=== PATIENT | female | born 1990 | race Caucasian/White ===

== ENCOUNTER 2016-06-13 17:07 | Day surgery (SDC) | payer BC ==
[~2016-06-13] VITALS: Ht 170.2 cm; Wt 56.7 kg
[~2016-06-13 17:07] MED LIST: ACHYD1T PO; DCS100C PO; DOCU100C37 PO; IBUP800T26 PO; METR500T PO; OXYC-465 PO; PREN1TAB39 PO; toradol PO
--- OUTSIDE RECORDS SUMMARY | 2016-06-13 17:12 | XMS REPORT | Continuity of Care Document ---
Author Author [facility] Organization [facility] Address Unknown Phone Unavailable Care Team Providers Care Hat Sprayer Name Role Phone CLAUDIO MCCLOUD MD PCP Insurance Providers Payer Name Policy Number Subscriber Name Relationship [facility] [id number] Billy Packer 18 Self / Same As Patient Advance Directives Directive Response Recorded Date/Time Advance Directives No 01/17/15 5:36pm Health Care Power of Security Intelligence Analyst No 01/17/15 5:36pm Organ Donor Yes 01/17/15 5:36pm Resuscitation Status Full Code 01/17/15 5:36pm Problems No known problems or medical conditions. Medications Medication Dose Route Sig Days/Qty Instructions Order Date Discontinued Date Status Vits W-Ca,Fe,Fa(<1MG) 1 Each PO DAILY 08/01/10 Active Metronidazole 1 Each PO TWICE A DAY 05/12/13 06/09/13 Discontinued Docusate Sodium 100 Mg PO TWICE A DAY PRN CONSTIPATION 60 Qty Use for constipation 06/12/13 Active Ibuprofen (Motrin) 800 Mg PO EVERY 6 HOURS PRN PAIN 60 Qty 06/12/13 Active Acetaminophen/Hydrocodone Bitart 1-2 Tab PO Q3H PRN PAIN 60 Qty Use for pain 06/12/13 Active Social History Social History Problem Response Recorded Date/Time Alcohol Use Denies Use 06/10/2013 6:05am Recreational Drug Use No 06/10/2013 6:05am Recent Foreign Travel No 06/10/2013 6:05am Hospitalization with Isolation Denies 06/12/2013 11:57pm Sexually Transmitted Disease No 06/10/2013 6:05am HIV/AIDS No 06/10/2013 6:05am Smoking Status Never a Smoker 01/17/2015 5:36pm Query Response Start Date Stop Date Smoking Status Never a Smoker Hospital Discharge Instructions No hospital discharge instructions. Plan of Care No plan of care. Functional Status No functional status results. Allergies, Adverse Reactions, Alerts Allergen Type Severity Reaction Status Last Updated No Known Drug Allergies Active 08/01/10 Immunizations Name Given Type Tetanus Booster (TDap) More than 5yrs Historical Vital Signs Acute Vital Signs Vital Response Date/Time Height (Feet) 5 feet Height (Inches) 6.00 inches Height (Calculated Centimeters) 167.119559 cm Weight (Pounds) 165 pounds Weight (Ounces) 14.0 oz Weight (Calculated Grams) 36659.635 gm Weight (Calculated Kilograms) 75.044489 kilograms Calculated BMI 26.63 Results No known relevant diagnostic tests, laboratory data and/or discharge summary. Procedures No known history of procedures. Encounters Encounter Location Date/Time Departed Clinic Via [facility] 01/17/15 5:11pm
[2016-06-13] MEDS ORDERED: D5 LR IV SOLUTION 1,000 ML IV SCH ×2 (17:13→17:16)
--- NOTE | 2016-06-13 17:13 | Progress Note-Pre Operative ---
Pre-Operative Progress Note H&P Reviewed The H&P was reviewed, patient examined and no changes noted. Date H&P Reviewed: Jun 13, 2016 Time H&P Reviewed: 17:13 Pre-Operative Diagnosis: incomplete spontaneous /intrauterine infection CLAUDIO MCCLOUD MD Jun 13, 2016 5:13 pm
[2016-06-13] MEDS ORDERED: KETOROLAC 30 MG/ML VIAL IVP ONE (17:15)
[2016-06-13] MEDS: LACTATED RINGERS 1,000 ML IV SCH ×2 (17:15→18:35)
[2016-06-13] MEDS ORDERED: ONDANSETRON 4 MG/2 ML (SDV) Z0FRAN IVP PRN (17:15)
[2016-06-13] MEDS ORDERED: PROMETHAZINE INJ 25 MG/ML (PHENERGAN) AMP IM ONE (17:15)
[2016-06-13] MEDS ORDERED: oxyCODONE/APAP 10/325MG (PERCOCET 10) TABLET PO PRN (17:15)
[2016-06-13] MEDS ORDERED: MEPERIDINE (DEMEROL) INJ 100 MG/ML IM ONE (17:15)
[2016-06-13] MEDS ORDERED: OXYC-465 PO (17:19)
[2016-06-13] MEDS ORDERED: morphine INJ 10 MG/ML 1ML (SYR OR VIAL) ONE (17:22)
[2016-06-13] MEDS ORDERED: KETOROLAC 30 MG/ML VIAL ONE (17:22)
[2016-06-13] MEDS ORDERED: MEPERIDINE (DEMEROL) INJ 50 MG/ML ONE (17:22)
--- NOTE | 2016-06-13 17:22 | Discharge Instructions ---
Discharge Instructions Discharge Medications New, Converted or Re-Newed RX: RX on Chart Patient Instructions Patient Instructions: as instructed Return to The Hospital For: as directed Activity & Diet Discharge Diet: No Restrictions Activity as Tolerated: No Orders-Post D/C & Referrals Follow Up Appt: Call to make follow up appt. for patient in 2 weeks. Activity: Rest for 24 hours, than as tolerated. Diet: As tolerated-Clear Liquids only if nauseated. Tomorrow, may shower or tub bathe as desired. No driving for 24 hours, no alcoholic beverages for 24 hours, and nothing per vagina (no tampons, douching, or intercourse) for 2 weeks. Patient to return to the clinic as soon as possible for: Temperature greater than 101F, Severe Pain, Foul discharge from incision or vagina, Excessive Bleeding (more than a period). CLAUDIO MCCLOUD MD Jun 13, 2016 5:22 pm
[2016-06-13] MEDS ORDERED: ceFAZolin 1,000 MG (ANCEF) VIAL ONE (17:23)
[2016-06-13] MEDS ORDERED: NORMAL SALINE (BAXTER MINI) 50 ML IV ONE (17:24)
[2016-06-13] MEDS ORDERED: METOCLOPRAMIDE INJ 10 MG/2 ML (REGLAN) ONE ×2 (17:26)
[2016-06-13] MEDS ORDERED: FAMOTIDINE 20MG/2ML IV (PEPCID) ONE (17:26)
[2016-06-13] MEDS ORDERED: MIDAZOLAM 10 MG/2 ML (VERSED) VIAL ONE (17:32)
[2016-06-13] MEDS ORDERED: fentaNYL INJECTION 100 MCG/2 ML AMP ONE (17:32)
[2016-06-13 17:33] LABS: BASOPHILS % (AUTO) 0 % (0-10); EOSINOPHILS # (AUTO) 0.1 10^3/uL (0.0-0.3); EOSINOPHILS % (AUTO) 1 % (0-10); LYMPHOCYTES # (AUTO) 2.3 X 10^3 (1.0-4.0); LYMPHOCYTES % (AUTO) 22 % (12-44); MEAN CORPUSCULAR HEMOGLOBIN 30 PG (25-34); MEAN CORPUSCULAR HGB CONC 34 G/DL (32-36); MEAN CORPUSCULAR VOLUME 87 FL (80-99); MONOCYTES # (AUTO) 0.6 X 10^3 (0.0-1.0); MONOCYTES % (AUTO) 6 % (0-12); NEUTROPHILS # (AUTO) 7.2 X 10^3 (1.8-7.8); NEUTROPHILS % (AUTO) 70 % (42-75); PLATELET COUNT 329 10^3/uL (130-400); RED CELL DISTRIBUTION WIDTH 12.8 % (10.0-14.5); WHITE BLOOD COUNT 10.2 10^3/uL (4.3-11.0)
[2016-06-13] MEDS ORDERED: FAMOTIDINE 20MG/2ML IV (PEPCID) IVP ONE (18:00)
[2016-06-13] MEDS ORDERED: METOCLOPRAMIDE INJ 10 MG/2 ML (REGLAN) IVP ONE (18:00)
[2016-06-13] MEDS ORDERED: PROPOFOL INJECTION 50 ML IV ONE (18:15)
[2016-06-13] MEDS ORDERED: diphenhydrAMINE 50 MG/ML INJ (BENADRYL) IV PRN (18:30)
[2016-06-13] MEDS ORDERED: NALOXONE 0.4 MG/ML 1 ML (NARCAN) VIAL IV PRN (18:30)
[2016-06-13] MEDS ORDERED: ONDANSETRON 4 MG/2 ML (SDV) Z0FRAN IV PRN (18:30)
[2016-06-13 19:30] VITALS: BP 97/57
--- OUTSIDE RECORDS SUMMARY | 2016-06-14 14:09 | XMS REPORT | Continuity of Care Document ---
Author Author [facility] Organization [facility] Address Unknown Phone Unavailable Care Team Providers Care Rf Microwave Engineer Name Role Phone CLAUDIO MCCLOUD MD PCP Insurance Providers Payer Name Policy Number Subscriber Name Relationship [facility] [id number] Billy Packer 18 Self / Same As Patient Advance Directives Directive Response Recorded Date/Time Advance Directives No 01/17/15 5:36pm Health Care Power of Armature Connector No 01/17/15 5:36pm Organ Donor Yes 01/17/15 [...] Height (Inches) 6.00 inches Height (Calculated Centimeters) 167.374506 cm Weight (Pounds) 165 pounds Weight (Ounces) 14.0 oz Weight (Calculated Grams) 31146.635 gm Weight (Calculated Kilograms) 75.596889 kilograms Calculated BMI 26.63 Results No known relevant diagnostic tests, laboratory data and/or discharge summary. Procedures No known history of procedures. Encounters Encounter Location Date/Time Departed Clinic Via [facility] 01/17/15 5:11pm
--- OUTSIDE RECORDS SUMMARY | 2016-06-14 14:09 | XMS REPORT | Continuity of Care Document ---
Author Author [facility] Organization [facility] Address Unknown Phone Unavailable Care Team Providers Care Record Press Tender Name Role Phone CLAUDIO MCCLOUD MD PCP Insurance Providers Payer Name Policy Number Subscriber Name Relationship [facility] [id number] Billy Packer 18 Self / Same As Patient Advance Directives Directive Response Recorded Date/Time Advance Directives No 01/17/15 5:36pm Health Care Power of Fire Equipment Inspector Helper No 01/17/15 5:36pm Organ Donor Yes 01/17/15 [...] Height (Inches) 6.00 inches Height (Calculated Centimeters) 167.680803 cm Weight (Pounds) 165 pounds Weight (Ounces) 14.0 oz Weight (Calculated Grams) 65769.635 gm Weight (Calculated Kilograms) 75.105942 kilograms Calculated BMI 26.63 Results No known relevant diagnostic tests, laboratory data and/or discharge summary. Procedures No known history of procedures. Encounters Encounter Location Date/Time Departed Clinic Via [facility] 01/17/15 5:11pm
[2016-06-14] MEDS ORDERED: ARTIFICAL TEARS 0.4 ML UNIT DOSE (REFRESH PLUS) ONE ×2 (21:45→23:34)
--- NOTE | 2016-06-17 06:20 | OPERATIVE REPORT ---
PROCEDURE PHYSICIAN: CLAUDIO MCCLOUD DATE OF PROCEDURE: 06/13/2016 DATE OF DICTATION: 06/13/2016 PREOPERATIVE DIAGNOSES: 1. Incomplete . 2. Intrauterine infection. POSTOPERATIVE DIAGNOSES: 1. Incomplete . 2. Intrauterine infection. OPERATIVE PROCEDURE: D&C, completion of incomplete . OPERATIVE DESCRIPTION: With the patient in supine position, under satisfactory spinal anesthesia, she was prepped and draped in usual fashion for vaginal surgery after being repositioned in the dorsal lithotomy position in the [facility]. The urinary bladder was emptied with a straight catheter. A weighted speculum was placed in the posterior fornix of the vagina. The cervix was exposed and grasped anteriorly with single-tooth tenaculum. The uterus was sounded to 10.5 cm of uterine sound. The cervix was then dilated to a number 9 Hegar dilator. A number 9 curved suction curette was introduced into the endometrial cavity was curettaged with removal of a large amount of necrotic and decidual/trophoblastic appearing tissue. There was some blood clot and debris. There was a foul odor and foul discharge. The endometrial cavity was then sharply curettaged in all 4 quadrants to a good uterine cry. The suction curette was reintroduced. All blood clot and debris evacuated from the uterus and from the vagina. The tenaculum was removed. There was no bleeding from the puncture sites. There was minimal bleeding from the cervical os. Sponge and needle counts were correct on completion of procedure. Estimated blood loss for procedure was minimal. The patient tolerated the procedure well, was uneventfully transferred from the operating room to the recovery room with her spinal still in effect. Plan was for discharge home once her spinal had resolved and she felt ready for discharge. Job ID: [id number] Dictated Date: 06/13/2016 18:18:23 Operations Supervisor 2Nd Shift Date: 06/17/2016 06:14:02 / jackson
== END 2016-06-13 21:30 | disposition home or self-care (01) ==
LOC: SDC 17:07 → UNDOADMOB 17:07 → WS 17:07 → SDC 21:30 → UNDODISOB 21:30 → EDSTATUS 06-14 14:05
PROVIDERS: ATTEND Obstetrics & Gynecology
DX: O03.0 Genital tract and pelvic infection following incomplete spontaneous abortion (principal)
CPT/HCPCS: 36415; 85025; 87081; 96374; 96375

== ENCOUNTER 2017-07-09 15:20 | Outpatient (CLI) | payer BC ==
[~2017-07-09] VITALS: Ht 170.2 cm; Wt 65.8 kg
[2017-07-09 15:33] VITALS: BP 126/74
--- NOTE | 2017-07-10 13:34 | Physician Query-Final Dx ---
JUWAN LOZANO 07/10/17 1334: Clinic Account Progress/Dx Physician Query: Please give diagnosis Date of Service Jul 09, 2017 at 15:20 CLAUDIO MCCLOUD MD 07/11/17 0747: Clinic Account Progress/Dx DIAGNOSIS: Diagnosis false labor JUWAN LOZANO Jul 10, 2017 13:34 CLAUDIO MCCLOUD MD Jul 11, 2017 07:47
== END 2017-07-09 16:05 | disposition home or self-care (01) ==
LOC: WSo 15:20 → LDRP 15:20 → WSo 16:05
PROVIDERS: ATTEND Obstetrics & Gynecology
DX: O47.02 False labor before 37 completed weeks of gestation, second trimester (principal); Z3A.20 20 weeks gestation of pregnancy
CPT/HCPCS: 99212

== ENCOUNTER 2017-11-06 19:38 | Outpatient (CLI) | payer BC ==
[~2017-11-06] VITALS: Ht 170.2 cm; Wt 76.9 kg
[2017-11-06 19:54] VITALS: BP 125/74
[2017-11-06] MEDS ORDERED: CETI10TA20 PO (21:15)
[2017-11-06] MEDS ORDERED: PREN1TAB25 PO (21:15)
[2017-11-09] MEDS ORDERED: IBUP-1780 PO (06:51)
[2017-11-09] MEDS ORDERED: DOCU-143 PO (06:51)
[2017-11-09] MEDS ORDERED: OXYC-197 PO (06:51)
--- NOTE | 2017-11-10 14:06 | Physician Query-Final Dx ---
JUWAN LOZANO 11/10/17 1406: Clinic Account Progress/Dx Physician Query: Please give diagnosis Date of Service November 06, 2017 at 19:38 CLAUDIO MCCLOUD MD 11/11/17 0726: Clinic Account Progress/Dx DIAGNOSIS: Diagnosis false labor JUWAN LOZANO Nov 10, 2017 14:06 CLAUDIO MCCLOUD MD Nov 11, 2017 07:26
== END 2017-11-06 21:33 | disposition home or self-care (01) ==
LOC: WSo 19:38 → LDRP 19:38 → WSo 21:33
PROVIDERS: ATTEND Obstetrics & Gynecology
DX: O47.1 False labor at or after 37 completed weeks of gestation (principal); Z3A.37 37 weeks gestation of pregnancy
CPT/HCPCS: 99213

== ENCOUNTER 2017-11-08 22:19 | Inpatient (IN) | payer BC ==
[~2017-11-08] VITALS: Ht 170.2 cm; Wt 77.1 kg
[~2017-11-08 22:19] MED LIST changes: +CETI10TA20 PO; +PREN1TAB25 PO
[2017-11-08 22:40] VITALS: BP 124/80
[2017-11-08] MEDS: D5 LR IV SOLUTION 1,000 ML IV SCH (23:00)
[2017-11-09] VITALS (28 sets, daily range): BP systolic 85–130; BP diastolic 54–85
[2017-11-09] MEDS ORDERED: OXYTOCIN/NORMAL SALINE 500 ML IV SCH ×3 (03:26→08:33)
[2017-11-09] MEDS ORDERED: D5 LR IV SOLUTION 1,000 ML IV SCH (03:26)
[2017-11-09] MEDS ORDERED: LIDOCAINE/EPI 2% 1:200,00 (XYLOCAINE) 10 ML VIAL ONE ×2 (03:33→07:09)
[2017-11-09 03:42] LABS: BASOPHILS % (AUTO) 0 % (0-10); EOSINOPHILS # (AUTO) 0.1 10^3/uL (0.0-0.3); EOSINOPHILS % (AUTO) 1 % (0-10); HEMATOCRIT 36 % (35-52); HEMOGLOBIN 12.2 G/DL (11.5-16.0); LYMPHOCYTES # (AUTO) 2.2 X 10^3 (1.0-4.0); LYMPHOCYTES % (AUTO) 21 % (12-44); MEAN CORPUSCULAR HEMOGLOBIN 30 PG (25-34); MEAN CORPUSCULAR HGB CONC 34 G/DL (32-36); MEAN CORPUSCULAR VOLUME 89 FL (80-99); MEAN PLATELET VOLUME 10.3 FL (7.4-10.4); MONOCYTES # (AUTO) 1.1 X 10^3 (0.0-1.0); MONOCYTES % (AUTO) 11 % (0-12); NEUTROPHILS # (AUTO) 7.1 X 10^3 (1.8-7.8); NEUTROPHILS % (AUTO) 68 % (42-75); PLATELET COUNT 334 10^3/uL (130-400); RED BLOOD COUNT 4.04 10^6/uL (4.35-5.85); RED CELL DISTRIBUTION WIDTH 13.5 % (10.0-14.5); WHITE BLOOD COUNT 10.4 10^3/uL (4.3-11.0)
[2017-11-09] MEDS: D5 LR IV SOLUTION 1,000 ML IV SCH (06:08)
--- NOTE | 2017-11-09 06:44 | History & Physical ---
History and Physical Date Seen by Provider: Nov 09, 2017 Time Seen by Provider: 06:42 This patient is a 26-year-old A2 white female who presented with somewhat irregular contractions but with advanced cervical dilation at 5-6 cm. She was unsure whether or not she was leaking fluid. She's had no problems with his to date. Her GBS culture after 35 weeks gestation was negative. She has a history of relatively rapid progress in labor. Allergies are none Medications are vitamins Medical social surgical obstetric and family histories are per the antepartum record HEENT exam is normal Neck is supple no lymphadenopathy no thyromegaly Abdomen is gravid soft nontender nondistended Extremities show no clubbing or cyanosis. There is no Homans sign. There is minimal pretibial pitting edema. Exam reveals a cervix that is 6 cm dilated 70 percent effaced and 0 to -1 station vertex presentation with intact membranes. Amniotomy is performed with release of clear fluid. Laboratory Tests 11/08/17 23:00 Assessment and plan term at one day shy of 38 weeks gestation in spontaneous labor. Anticipation is for vaginal delivery. Allergies and Home Medications Allergies Coded Allergies: No Known Drug Allergies (Unverified , 11/08/17) Home Medications Cetirizine HCl 10 Mg Tablet, 10 MG PO DAILY, (Reported) Vit#96/Ferrous Fum/FA 1 Each Tablet, 1 EACH PO DAILY, (Reported) Patient Home Medication List Home Medication List Reviewed: Yes Clinical Quality Measures DVT/VTE Risk/Contraindication: Risk Factor Score Per Nursin RFS Level Per Nursing on Admit: 1=Low/No VTE PPX CLAUDIO MCCLOUD MD Nov 09, 2017 6:44 am
[2017-11-09] MEDS ORDERED: DOCU-143 PO (06:51)
[2017-11-09] MEDS ORDERED: IBUP-1780 PO (06:51)
[2017-11-09] MEDS ORDERED: OXYC-197 PO (06:51)
--- NOTE | 2017-11-09 06:52 | Discharge Instructions ---
Discharge Instructions Discharge Medications New, Converted or Re-Newed RX: RX on Chart Patient Instructions Patient Instructions: as directed Return to The Hospital For: As directed Activity & Diet Discharge Diet: No Restrictions Activity as Tolerated: No Orders-Post D/C & Referrals Follow Up Appt: Call to make follow up appt. for patient in 4 weeks. Activity Per routine post vaginal delivery instructions. Diet as tolerated Patient may shower or tub bathe as desired. CLAUDIO MCCLOUD MD Nov 09, 2017 6:52 am
[2017-11-09] MEDS ORDERED: TETANUS,DIPTH,PERTUSS P/F (BOOSTRIX) 0.5 ML VIAL IM ONE (08:45)
[2017-11-09] MEDS ORDERED: BENZOCAINE/MENTHOL (DERMOPLAST) 56 ML CAN TP PRN (08:45)
[2017-11-09] MEDS ORDERED: oxyCODONE/APAP 5/325MG (PERCOCET 5) TABLET PO PRN (08:45)
[2017-11-09] MEDS: KETOROLAC 30 MG/ML VIAL IV SCH ×3 (09:22→20:49)
--- NOTE | 2017-11-09 19:54 | OPERATIVE REPORT ---
DATE OF SERVICE: 11/09/2017 DELIVERY NOTE The patient delivered by term spontaneous vaginal delivery a viable male with Apgars of 8 and 9 at 1 and 5 minutes respectively. time of 07:48, weight of 7 pounds 14 ounces and cord arterial blood pH of 7.26. The infant was delivered over a first-degree perineal laceration under no analgesia. There was a tight nuchal cord that was released. There was somewhat of a shoulder dystocia. After the head delivered, the posterior shoulder was out already on the perineum. This made the anterior shoulder a little bit difficult for the mom to push under, but with several pushes and with gentle traction, the delivery was completed. The had a spontaneous cry, moved all extremities, had a normal [place] reflex immediately, had good tone and reflexes and was quickly pink and had a lusty cry. The infant was bulb suctioned on delivery of the head and again on completion of delivery. The father cut the cord, the baby was passed to mom's abdomen. After cord bloods were obtained, the placenta delivered spontaneously Beatty. It was normal with a 3-vessel cord. The cervix, vagina, rectum and perineum were examined and found intact, except for an approximately 2 to 2.5 cm first-degree perineal laceration at the right posterolateral portion of the posterior fourchette. The edges of this laceration were trimmed and after infiltrating the area with 1% lidocaine with epinephrine and then the defect was closed with a single suture of 3-0 Vicryl in a running lock fashion to good reapproximation and good hemostasis. Sponge and needle counts were correct on completion of delivery and the repair. Estimated blood loss was around 250 mL. The mom remained in the LDR for recovery. The baby remained with the mom. Job ID: [id number] DocumentID: [id number] Dictated Date: 11/09/2017 08:12:01 Android Framework Developer Date: 11/09/2017 19:54:28 Dictated By: CLAUDIO MCCLOUD MD
[2017-11-09] MEDS: DOCUSATE SODIUM 100 MG (COLACE) CAP PO SCH ×2 (20:14→20:49)
[2017-11-09] MEDS: CATHETER FLUSH 10 ML SYR IV SCH (20:49)
[2017-11-10] VITALS: BP 109/70
[2017-11-10] MEDS: KETOROLAC 30 MG/ML VIAL IV SCH (01:56)
[2017-11-10] MEDS: CATHETER FLUSH 10 ML SYR IV SCH ×2 (01:56→02:38)
[2017-11-10 04:25] VITALS: BP 103/68
[2017-11-10] MEDS: DOCUSATE SODIUM 100 MG (COLACE) CAP PO SCH (09:12)
[2017-11-10] MEDS: IBUPROFEN 800 MG (MOTRIN) TAB PO SCH ×3 (09:13→20:50)
[2017-11-10 09:25] VITALS: BP 99/69
--- NOTE | 2017-11-10 12:59 | Progress Note-Standard ---
Standard Progress Note Progress Notes/Assess & Plan Date Seen by Provider: Nov 10, 2017 Time Seen by Provider: 07:45 Progress/Assessment & Plan This patient is without complaint. She is ambulating, voiding, tolerating by mouth well, has good pain control. Patient denies chest pain, denies shortness of breath, denies nausea vomiting, denies headache. Vital Signs Date Time Temp Pulse Resp B/P (MAP) Pulse Ox O2 Delivery O2 Flow Rate FiO2 11/10/17 09:25 97.1 104 18 99/69 (79) Room Air 11/10/17 04:25 98.1 88 18 103/68 (80) 98 Room Air 11/10/17 00:00 98.0 89 18 109/70 (83) 99 Room Air 11/09/17 20:49 99.0 84 18 101/60 (74) 99 Room Air 11/09/17 18:10 98.3 87 18 104/67 (79) 100 Room Air 11/09/17 13:30 98.5 70 18 85/54 (64) 100 Room Air I & O 11/10/17 07:00 Intake Total 1500 ml Balance 1500 ml Vital signs are stable. Patient afebrile. Fundus is firm below the umbilicus and nontender. Extremities show no clubbing cyanosis. There is no Homans sign. Assessment and plan day number 1 status post term spontaneous vaginal delivery doing well. Plan is for routine convalescence care today and discharge home tomorrow CLAUDIO MCCLOUD MD Nov 10, 2017 12:59 pm
[2017-11-10 13:00] VITALS: BP 130/80
[2017-11-10 20:50] VITALS: BP 115/75
[2017-11-11] MEDS: DOCUSATE SODIUM 100 MG (COLACE) CAP PO SCH ×2 (02:56→08:33)
[2017-11-11 02:57] VITALS: BP 102/65
[2017-11-11] MEDS: IBUPROFEN 800 MG (MOTRIN) TAB PO SCH ×3 (02:57→13:38)
--- NOTE | 2017-11-11 07:31 | Progress Note-Standard ---
Standard Progress Note Progress Notes/Assess & Plan Date Seen by Provider: Nov 11, 2017 Time Seen by Provider: 07:29 Progress/Assessment & Plan This patient is without complaint. She is ambulating, voiding, tolerating by mouth well, has good pain control. Patient denies chest pain, denies shortness of breath, denies nausea vomiting, denies headache. Vital Signs Date Time Temp Pulse Resp B/P (MAP) Pulse Ox O2 Delivery O2 Flow Rate FiO2 11/10/17 09:25 97.1 104 18 99/69 (79) Room Air 11/10/17 04:25 98.1 88 18 103/68 (80) 98 Room Air 11/10/17 00:00 98.0 89 18 109/70 (83) 99 Room Air 11/09/17 20:49 99.0 84 18 101/60 (74) 99 Room Air 11/09/17 18:10 98.3 87 18 104/67 (79) 100 Room Air 11/09/17 13:30 98.5 70 18 85/54 (64) 100 Room Air I & O 11/10/17 07:00 Intake Total 1500 ml Balance 1500 ml Vital signs are stable. Patient afebrile. Fundus is firm below the umbilicus and nontender. Extremities show no clubbing cyanosis. There is no Homans sign. Assessment and plan day number 1 status post term spontaneous vaginal delivery doing well. Plan is for routine convalescence care today and discharge home tomorrow November 11, 2017 This patient again is without complaint. She is ambulating, voiding, tolerating by mouth well, has good pain control. Patient denies chest pain, denies shortness of breath, denies nausea vomiting, denies headache. Vital Signs Date Time Temp Pulse Resp B/P (MAP) Pulse Ox O2 Delivery O2 Flow Rate FiO2 11/11/17 02:57 99.0 85 18 102/65 (77) 99 Room Air 11/10/17 20:50 98.0 87 18 115/75 (88) 100 Room Air 11/10/17 13:00 98.3 98 18 130/80 (97) Room Air 11/10/17 09:25 97.1 104 18 99/69 (79) Room Air Vital signs are stable. Patient afebrile. Fundus is firm below the umbilicus and nontender. Extremities show no clubbing cyanosis. There is no Homans sign. Assessment and plan day number 2 status post term spontaneous vaginal delivery doing well. Plan is for routine convalescence care today with discharge home Final Diagnosis CLAUDIO LYNN MD Nov 11, 2017 7:31 am
[2017-11-11 08:28] VITALS: BP 102/63
[2017-11-11 08:40] VITALS: BP 107/61
[2017-11-11] MEDS ORDERED: TETANUS,DIPTH,PERTUSS P/F (BOOSTRIX) 0.5 ML VIAL IM ONE (13:28)
== END 2017-11-11 13:40 | disposition home or self-care (01) | DRG 775 ==
LOC: WSo 22:19 → LDRP 22:20 → WSo 11-09 03:00 → LDRP 11-09 03:00
PROVIDERS: ADMIT Obstetrics & Gynecology; ATTEND Obstetrics & Gynecology
PROC: 10E0XZZ Delivery of Products of Conception, External Approach (ICD-10-PCS; principal; 2017-11-09)
PROC: 0HQ9XZZ Repair Perineum Skin, External Approach (ICD-10-PCS; 2017-11-09)
DX: O70.0 First degree perineal laceration during delivery (principal); Z37.0 Single live birth; O69.1XX0 Labor and delivery complicated by cord around neck, with compression, not applicable or unspecified; O66.0 Obstructed labor due to shoulder dystocia; Z3A.37 37 weeks gestation of pregnancy; Z23 Encounter for immunization
CPT/HCPCS: 36415; 85025; 86850; 86900; 86901; 88307; 90715; 99212

== ENCOUNTER → 2021-05-30 | Outpatient (CLI) | payer BC ==
[~2021-05-30] MED LIST changes: -CETI10TA20 PO; +CETI10TA49 PO; +DOCU-143 PO; +IBUP-1780 PO; -OXYC-465 PO; +OXYC-556 PO; +OXYC1TAB87 PO
--- NOTE | 2021-05-30 18:38 | Diagnostic Imaging Report ---
PROCEDURE: US OB single fetus <14 wks. TECHNIQUE: Multiple real-time grayscale images were obtained over the gravid uterus in various projections. INDICATION: 1st trimester . Size and dates. COMPARISON: None. FINDINGS: Uterus is retroverted. There is a single, live intrauterine with a crown-rump length measuring 2.5 cm, which is consistent with a 9 week and 2 day-old fetus. heart rate was documented at 174 beats per minute. anatomy is not well seen at this early state of gestation. Ovaries cannot be adequately visualized on either side. Maternal adnexa are otherwise grossly unremarkable. There is no free fluid in the cul-de-sac. CLINICAL DATES: Gestational age 11 weeks and 1 day. COLTEN is 12/18/2021. IMPRESSION: Single, live intrauterine at estimated 9 week 2 day gestation. Estimated due date is 12/31/2021. This is concordant with the clinical dates. Recommend redating based on this exam. Follow-up is also advised. Dictated by: Dictated on workstation # [id number]
== END ==
LOC: RAD 15:15
PROVIDERS: ATTEND Obstetrics & Gynecology
DX: Z36.9 Encounter for antenatal screening, unspecified (principal)
CPT/HCPCS: 76801

== ENCOUNTER → 2021-10-10 | Outpatient (CLI) | payer BC ==
[2021-10-10 15:36] LABS: BASOPHILS % (AUTO) 0 % (0-10); EOSINOPHILS % (AUTO) 1 % (0-10); HEMATOCRIT 35 % (35-52); HEMOGLOBIN 11.4 g/dL (11.5-16.0); LYMPHOCYTES # (AUTO) 1.6 X 10^3 (1.0-4.0); LYMPHOCYTES % (AUTO) 18 % (12-44); MEAN CORPUSCULAR HEMOGLOBIN 31 pg (25-34); MEAN CORPUSCULAR HGB CONC 33 g/dL (32-36); MEAN CORPUSCULAR VOLUME 94 fL (80-99); MEAN PLATELET VOLUME 9.8 fL (9.0-12.2); MONOCYTES # (AUTO) 0.6 X 10^3 (0.0-1.0); MONOCYTES % (AUTO) 7 % (0-12); NEUTROPHILS # (AUTO) 6.5 X 10^3 (1.8-7.8); NEUTROPHILS % (AUTO) 74 % (42-75); PLATELET COUNT 270 10^3/uL (130-400); WHITE BLOOD COUNT 8.8 10^3/uL (4.3-11.0)
== END ==
LOC: LABNPT 15:24
PROVIDERS: ATTEND Obstetrics & Gynecology
DX: Z34.83 Encounter for supervision of other normal pregnancy, third trimester (principal); Z3A.00 Weeks of gestation of pregnancy not specified
CPT/HCPCS: 82950; 85025

== ENCOUNTER 2021-12-12 13:47 | Inpatient (IN) | payer BC, MEDICAID ==
[~2021-12-12] VITALS: Ht 170.2 cm; Wt 74.4 kg
[2021-12-12] VITALS (19 sets, daily range): BP systolic 104–133; BP diastolic 55–81
[2021-12-12] MEDS ORDERED: D5 LR IV SOLUTION 1,000 ML IV ONE (14:27)
[2021-12-12] MEDS ORDERED: OXYTOCIN PRE-MIX DRIP 500 ML IV ONE (14:27)
--- NOTE | 2021-12-12 14:38 | History & Physical ---
History and Physical Date Seen by Provider: Dec 12, 2021 Time Seen by Provider: 14:36 This patient is a [id number] patient Para 3 Admitted now 37-3/7 weeks gestation in early labor with cervix dilated 5 to 7 cm very soft and stretchy presenting part is the vertex at the -1 to -2 station. Amniotomy was performed on my exam releasing clear fluid. Patient's has been uncomplicated. She had a GBS culture after 35 weeks gestation that was negative. Allergies are none Medications are vitamins Medical social and surgical histories are per the antepartum record HEENT exam is normal Neck is supple no lymphadenopathy no thyromegaly bilateral is gravid soft nontender nondistended Extremities show no clubbing cyanosis. There is no Homans' sign. Pelvic exam shows a cervix 5 to 7 cm dilated 70% effaced -1-2 station vertex presentation with intact membranes amniotomy was performed with release of clear fluid. monitor shows a normal heart rate pattern/category 1 with occasional contractions Lab work is pending Assessment and plan 37-3/7 weeks gestation admitted in labor for labor management. We anticipate a vaginal delivery 37 weeks gestation admitted in labor Allergies and Home Medications Allergies Coded Allergies: No Known Drug Allergies (Unverified , 11/08/17) Patient Home Medication List Home Medication List Reviewed: Yes Cetirizine HCl (Zyrtec) 10 Mg Tablet, 10 MG PO DAILY, (Reported) Entered as Reported by: NUSRAT BOOTHE on 11/06/172114 Docusate Sodium (Colace) 100 Mg Capsule, 100 MG PO BID Prescribed by: CLAUDIO FRANK on 11/09/17650 Ibuprofen (Ibuprofen) 800 Mg Tablet, 800 MG PO Q6H PRN for PAIN Prescribed by: CLAUDIO FRANK on 11/09/17650 Oxycodone HCl/Acetaminophen (Percocet 5-325 mg Tablet) 1 Each Tablet, 1-2 EACH PO Q4H Prescribed by: CLAUDIO FRANK on 11/09/17650 Vit#96/Ferrous Fum/FA ( Tablet) 1 Each Tablet, 1 EACH PO DAILY, (Reported) Entered as Reported by: NUSRAT BOOTHE on 11/06/172114 CLAUDIO MCCLOUD MD Dec 12, 2021 14:38
[2021-12-12 14:40] LABS: BASOPHILS % (AUTO) 0 % (0-10); EOSINOPHILS % (AUTO) 0 % (0-10); HEMATOCRIT 34 % (35-52); HEMOGLOBIN 11.7 g/dL (11.5-16.0); LYMPHOCYTES # (AUTO) 1.8 10^3/uL (1.0-4.0); LYMPHOCYTES % (AUTO) 20 % (12-44); MEAN CORPUSCULAR HEMOGLOBIN 31 pg (25-34); MEAN CORPUSCULAR HGB CONC 34 g/dL (32-36); MEAN CORPUSCULAR VOLUME 89 fL (80-99); MEAN PLATELET VOLUME 10.5 fL (9.0-12.2); MONOCYTES # (AUTO) 0.5 10^3/uL (0.0-1.0); MONOCYTES % (AUTO) 6 % (0-12); NEUTROPHILS # (AUTO) 6.6 10^3/uL (1.8-7.8); NEUTROPHILS % (AUTO) 74 % (42-75); PLATELET COUNT 262 10^3/uL (130-400)
--- NOTE | 2021-12-12 14:40 | Discharge Inst-Surgical ---
Discharge Inst-Surgical Depart Medication/Instructions New, Converted or Re-Newed RX: Transmitted to Pharmacy Consults/Follow Up Patient Instructions: As directed Orders & Referrals Follow Up Appt: Call to make follow up appt. for patient in 4 weeks. Activity Per routine post vaginal delivery instructions. Prescriptions have been sent from my office to patient's pharmacy Diet as tolerated Patient may shower or tub bathe as desired. Activity Activity as Tolerated: No Diet Discharge Diet: No Restrictions CLAUDIO MCCLOUD MD Dec 12, 2021 14:40
[2021-12-12] MEDS ORDERED: D5 LR IV SOLUTION 1,000 ML IV SCH (14:45)
[2021-12-12] MEDS ORDERED: OXYTOCIN PRE-MIX DRIP 500 ML IV SCH ×2 (14:45→17:45)
[2021-12-12] MEDS ORDERED: LIDOCAINE/EPI 2% 1:200,00 (XYLOCAINE) 10 ML VIAL ONE (17:17)
[2021-12-12] MEDS ORDERED: oxyCODONE/APAP 5/325MG (PERCOCET 5) TABLET PO PRN (17:45)
[2021-12-12] MEDS ORDERED: TETANUS,DIPTH,PERTUSS P/F (BOOSTRIX) 0.5 ML VIAL IM ONE (17:45)
[2021-12-12] MEDS ORDERED: BENZOCAINE/MENTHOL (DERMOPLAST) 56 ML CAN TP PRN (17:45)
[2021-12-12] MEDS ORDERED: ONDANSETRON 4 MG/2 ML (SDV) Z0FRAN IVP PRN (17:45)
[2021-12-12] MEDS: KETOROLAC 30 MG/ML VIAL IVP SCH (18:38)
[2021-12-12] MEDS ORDERED: ACETAMINOPHEN 500 MG TAB (TYLENOL) PO PRN (20:45)
[2021-12-12] MEDS: DOCUSATE SODIUM 100 MG (COLACE) CAP PO SCH (20:47)
[2021-12-13 00:48] VITALS: BP 110/72
[2021-12-13] MEDS: KETOROLAC 30 MG/ML VIAL IVP SCH ×2 (00:48→06:20)
[2021-12-13 04:40] VITALS: BP 114/63
--- NOTE | 2021-12-13 08:22 | Progress Note ---
Standard Progress Note Progress Notes/Assess & Plan Date Seen by a Provider: Dec 13, 2021 Time Seen by a Provider: 08:21 Progress/Assessment & Plan This patient is without complaint. She is ambulating, voiding, tolerating oral intake well and has good pain control. Vital Signs Date Time Temp Pulse Resp B/P (MAP) Pulse Ox O2 Delivery O2 Flow Rate FiO2 12/13/21 04:40 36.7 74 18 114/63 (80) 99 Room Air 12/13/21 00:48 36.8 66 18 110/72 (85) 98 Room Air 12/12/21 20:47 37.0 69 18 109/69 (82) 98 Room Air 12/12/21 18:30 83 18 113/55 (74) Room Air 12/12/21 18:15 72 18 106/68 (81) Room Air 12/12/21 18:00 75 18 108/63 (78) Room Air 12/12/21 17:41 86 18 104/62 (76) Room Air 12/12/21 17:26 80 18 110/69 (83) Room Air 12/12/21 17:11 100 18 133/81 (98) Room Air 12/12/21 17:00 82 18 125/74 (91) Room Air 12/12/21 16:45 82 18 125/74 (91) Room Air 12/12/21 16:30 80 18 121/71 (88) Room Air 12/12/21 16:15 36.7 90 18 127/78 (94) Room Air 12/12/21 16:00 89 18 124/80 (95) Room Air 12/12/21 15:45 89 18 127/79 (95) Room Air 12/12/21 15:30 82 18 124/76 (92) Room Air 12/12/21 15:15 86 18 117/79 (92) Room Air 12/12/21 15:00 95 18 118/81 (93) Room Air 12/12/21 14:40 89 18 120/80 (93) Room Air 12/12/21 14:00 36.7 107 18 115/69 (84) 99 Room Air 12/12/21 13:57 36.7 102 18 99 Room Air I & O 12/13/21 07:00 Intake Total 500 ml Balance 500 ml Vital signs are stable. Patient is afebrile. Fundus is firm below the umbilicus and nontender Extremities show no clubbing cyanosis. There is no Homans' sign. Pelvic exam is deferred Assessment and plan day #1 status post term spontaneous vaginal livery at 37+ weeks gestation. Plan is for routine convalescent care. Patient is requesting discharge home and she will be discharged home today or tomorrow as she prefers Final Diagnosis 37-week spontaneous vaginal delivery CLAUDIO MCCLOUD MD Dec 13, 2021 08:22
[2021-12-13] MEDS ORDERED: IBUP-1780 PO (08:23)
[2021-12-13] MEDS ORDERED: DOCU-143 PO (08:23)
[2021-12-13 10:26] VITALS: BP 108/68
[2021-12-13] MEDS: DOCUSATE SODIUM 100 MG (COLACE) CAP PO SCH (10:26)
[2021-12-13] MEDS: IBUPROFEN 800 MG (MOTRIN) TAB PO SCH ×2 (11:47→18:17)
[2021-12-13 11:48] VITALS: BP 113/65
--- NOTE | 2021-12-13 13:02 | OPERATIVE REPORT ---
DATE OF SERVICE: 12/12/2021 DELIVERY NOTE The patient delivered by term spontaneous vaginal delivery at 37+ weeks gestation, a viable male infant with Apgars of 9 and 9 at 1 and 5 minutes respectively, weight of 7 pounds 14 ounces, time of 1710 and a cord blood pH was 7.33. The infant was delivered over a first-degree perineal laceration under no analgesia. The infant was bulb suctioned on delivery of the head and again on completion of delivery. Umbilical cord was doubly clamped. The patient's mother cut the cord, The infant was then passed to mom's abdomen. Cord bloods were obtained. The placenta delivered spontaneously Beatty. It was normal with a 3-vessel cord. The uterus contracted nicely at this point. The cervix, vagina, rectum, and perineum were examined and found intact, except for a first-degree perineal laceration that was repaired under local analgesia with a single suture of 3-0 Vicryl Rapide. Good reapproximation and good hemostasis was achieved. Sponge and needle counts were correct after completion of delivery and repair. Blood loss was around 300 mL. The patient tolerated the procedure well and remained in the LDR for recovery. The baby remained with the mom. Job ID: [id number] DocumentID: [id number] Dictated Date: 12/13/2021 08:08:53 Senior Computer Specialist Date: 12/13/2021 13:02:01 Dictated By: CLAUDIO MCCLOUD MD MTDD
[2021-12-13 16:11] VITALS: BP 117/64
[2021-12-13] MEDS ORDERED: IBUPROFEN 800 MG (MOTRIN) TAB PO SCH (18:00)
== END 2021-12-13 19:25 | disposition home or self-care (01) | DRG 807 ==
LOC: LDRP 13:47
PROVIDERS: ADMIT Obstetrics & Gynecology; ATTEND Obstetrics & Gynecology
PROC: 10E0XZZ Delivery of Products of Conception, External Approach (ICD-10-PCS; principal; 2021-12-11)
PROC: 0HQ9XZZ Repair Perineum Skin, External Approach (ICD-10-PCS; 2021-12-11)
DX: O70.0 First degree perineal laceration during delivery (principal); Z37.0 Single live birth; Z3A.37 37 weeks gestation of pregnancy
CPT/HCPCS: 36415; 85025; 86850; 86900; 86901